=== PATIENT | male | born 1940 | race Hispanic/Latino ===

== ENCOUNTER 2018-01-08 09:18 | Outpatient (CLI) | payer MEDICARE, OTHER ==
--- NOTE | 2018-01-08 10:30 | RAD ---
THREE VIEWS LUMBAR SPINE: Technique: Neutral lateral, flexion and extension views. Date: 01-08-18 History: Lumbar radiculopathy. History of back surgery in 2011. Patient fell backwards onto a log fou r months ago and now has left hip and back pain. FINDINGS: Vertebral body heights are within normal limits. There is narrowing of the L4-5 intervertebral disc s pace and to a lesser extent L5-S1 intervertebral disc space. No fracture or subluxation is seen on th e provided lateral images. There are facet degenerative changes in the lower lumbar spine. Surgical c lips are seen in the anterior upper abdomen. Multiple clips also overlie the pelvis. Vascular calcifi cation in the abdominal aorta. IMPRESSION: 1, Degenerative changes in the lumbar spine, greatest at the L4-5 level. 2. No fracture or subluxation is seen on the provided lateral images. POS: [facility]
--- NOTE | 2018-01-08 11:22 | MRI ---
MRI LUMBAR SPINE WITHOUT IV CONTRAST: DATE: 01/08/18. HISTORY: Lumbar radiculopathy. History of back surgery in 2012. The patient fell 4 months ago and now has le ft hip and back pain. Lumbar radiculopathy. COMPARISON: None available. FINDINGS: There are a few tiny increased T2 weighted signal intensity foci in each kidney which are difficult t o characterize due to small size, but statistically likely represent cysts. The remainder of the ret roperitoneal structures demonstrate a normal MRI appearance. Conus medullaris is normal in appearance and terminates at the L1-2 level. There is generalized heterogeneity of the bone marrow with scattered end plate degenerative changes p resent. Schmorl's nodes are present at the inferior end plates of the T10 and T11 vertebral bodies. L1-2 level: There is a broad-based disk-osteophyte complex with mild facet degenerative changes. Th ere is mild narrowing of the central spinal canal. There is mild encroachment on the right neural fo ramen, but the left neural foramen is patent. L2-3 level: There is a mild broad-based disk-osteophyte complex with facet hypertrophic changes. Th is results in mild narrowing of the central spinal canal. There is minimal encroachment of the right neural foramen, but the left neural foramen is patent. L3-4 level: There is a mild broad-based disk-osteophyte complex greater laterally on the right. Thi s does result in mild right-sided neural foraminal narrowing. The left neural foramen is patent. Th ere is only minimal effacement of the ventral aspect of the thecal sac. L4-5 level: There is loss of intervertebral disk height. There is a broad-based disk-osteophyte com plex. Moderate facet hypertrophic changes and ligamentous thickening are present. There is mild to moderate narrowing of the central spinal canal. There is mild right and moderate left-sided neural f oraminal narrowing. L5-S1 level: There is minimal disk bulge without significant narrowing of the central spinal canal. There are facet degenerative changes present, greater on the right with mild right-sided neural fora darlene narrowing. The left neural foramen is patent. IMPRESSION: 1. Scattered degenerative changes within the lumbar spine without significant central canal or neura l foraminal narrowing. The greatest degree of neural foraminal narrowing is seen on the left at the L4-5 level with mild to moderate narrowing of the neural foramen. 2. MRI of the lumbar spine on 03/20/12 also demonstrated multilevel degenerative changes, and there h as been no significant progression in the degree of the degenerative changes when compared to the debbie or exam. POS: [facility]
== END 2018-01-08 09:19 | disposition home or self-care (01) ==
LOC: TBSIIMAG 09:18
PROVIDERS: ATTEND Nurse Practitioner Family
DX: M47.26 Other spondylosis with radiculopathy, lumbar region (principal); M99.83 Other biomechanical lesions of lumbar region
CPT/HCPCS: 72100; 72148

== ENCOUNTER 2020-02-12 14:07 | Outpatient (CLI) | payer MEDICARE, OTHER ==
--- NOTE | 2020-02-12 14:52 | RAD ---
RIGHT HIP 2 VIEWS: INDICATION: Right hip pain. COMPARISON: None. 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 There is moderate to severe right hip osteo arthrosis. No acute fracture is evident. IMPRESSION: No acute osseous abnormality. Moderate right hip osteoarthrosis. POS: [facility]
== END 2020-02-12 14:08 | disposition home or self-care (01) ==
LOC: RAD 14:07
PROVIDERS: ATTEND Nurse Practitioner Family
DX: M25.551 Pain in right hip (principal); M16.11 Unilateral primary osteoarthritis, right hip

== ENCOUNTER 2020-03-18 12:41 | Outpatient (CLI) | payer MEDICARE, OTHER ==
--- NOTE | 2020-03-18 13:46 | RAD ---
Exam: 3 views lumbar spine HISTORY: Lumbar radiculopathy. COMPARISON: 01/08/2018 FINDINGS: Lateral neutral, lateral flexion and lateral extension views lumbar spine demonstrate 5 lum bar type vertebra. Moderate degenerative change at L4-L5. No spondylolisthesis in the neutral position. No abnormal motion upon flexion or extension. Stable mild degenerative change at the L1-L2 level IMPRESSION: Stable degenerative changes. No significant spondylolisthesis or spondylolysis.
--- NOTE | 2020-03-18 14:16 | MRI ---
MRI LUMBAR SPINE NONCONTRAST: HISTORY: Bilateral hip pain times many years. COMPARISON: 01/08/2018. FINDINGS: Appropriate T1 marrow signal intensity of the lumbar vertebrae. Lumbar spine vertebral body height is maintained and there is no fracture. No significant STIR hyperintensity to suggest edematous injury or vertebral body edema. Appropriate signal intensity visualized of the solid organs and paraspinal muscles. Conus medullaris terminates at the mid L1 level. T12-L1:Adequate disc hydration. No significant central canal stenosis or significant neural foraminal narrowing. L1-L2:Disc desiccation with mild loss of disc space height. Broad-based disc bulge, ligament flavum t hickening and facet hypertrophy result in mild central canal stenosis. Moderate right and mild left neural foraminal narrowing. L2-L3:Disc desiccation with mild loss of disc space height. Broad-based disc bulge, ligament flavum t hickening and facet result in mild central canal stenosis. Mild bilateral neural foraminal narrowing. L3-L4:Disc desiccation without significant loss of disc space height. Broad-based disc bulge minimall y contacts the ventral thecal sac. There is mild ligament flavum thickening and facet hypertrophy. Mild central canal stenosis. Bilaterally, neural foramina are patent. L4-L5:Disc desiccation with moderate loss of disc space height. Broad-based disc bulge, ligament flav um thickening and facet hypertrophy result in mild stenosis of the thecal sac. There is encroachment upon the left subarticular zone with partial obscuration traversing left L5 nerve root. Mild right neural foraminal narrowing due to disc material. Severe left neural foraminal narrowing due to disc material. There is also obscuration the extraforaminal left L4 nerve root. L5-S1:Adequate disc hydration. No significant loss of disc space height. No posterior disc abnormalit y. No significant central canal stenosis. Small amount of fluid in the left facet joint. Moderate bilateral facet arthropathy. IMPRESSION: Multilevel degenerative changes of the lumbar spine as detailed above. Transcribed Date/Time: 03/18/2020 2:40 PM
== END 2020-03-18 12:42 | disposition home or self-care (01) ==
LOC: MRI 12:41
PROVIDERS: ATTEND Nurse Practitioner Family
DX: M47.26 Other spondylosis with radiculopathy, lumbar region (principal)
CPT/HCPCS: 72100; 72148

== ENCOUNTER 2023-11-14 19:16 | Emergency (ER) | payer MEDICARE, OTHER ==
[2023-11-14] MEDS ORDERED: Bupivacaine 0.5% 10 ML VIAL ONE (20:07)
[2023-11-14] MEDS ORDERED: Boostrix 0.5 ML (Tdap) VIAL (>/=7 yrs of age) ONE (21:59)
== END 2023-11-14 23:23 | disposition home or self-care (01) ==
LOC: ERS 19:16
DX: S61.213A Laceration without foreign body of left middle finger without damage to nail, initial encounter (principal); F03.90 Unspecified dementia, unspecified severity, without behavioral disturbance, psychotic disturbance, mood disturbance, and anxiety; W23.0XXA Caught, crushed, jammed, or pinched between moving objects, initial encounter
CPT/HCPCS: 12002; 70450; 90471; 90715; J3490

== ENCOUNTER 2024-01-25 06:04 | Day surgery (SDC) | payer MEDICARE, OTHER ==
[2024-01-24 12:37] VITALS: BMI 23.3
[~2024-01-25 06:04] MED LIST: EPINEPHrine 0.3 MG in Ophthalmic Irrigation Solution 500 ML IRR SCH
[2024-01-25] MEDS ORDERED: PHENYLephrine 2.5% Ophth Soln 15 ml Bottle ONE (06:16)
[2024-01-25] MEDS ORDERED: PROPOFOL 20 ML ONE (06:44)
[2024-01-25] MEDS ORDERED: fentaNYL 50 mcg/mL 1 mL Vial ONE (06:45)
[2024-01-25] MEDS ORDERED: Lidocaine 1% PF 5 ML VIAL ONE ×2 (07:13→07:19)
[2024-01-25] MEDS ORDERED: Ondansetron PF 4 MG/2 ML Vial ONE (07:13)
[2024-01-25] MEDS ORDERED: Dexamethasone 4 mg/ml Vial ONE (07:13)
[2024-01-25] MEDS ORDERED: ePHEDrine Sulfate 50 MG/10 ML VIAL ONE (07:16)
[2024-01-25] MEDS ORDERED: Lidocaine 4% PF 5 ML AMP ONE (07:19)
[2024-01-25] MEDS ORDERED: Triamcinolone 40 MG/ML VIAL ONE (07:19)
[2024-01-25] MEDS ORDERED: Maxitrol 0.1% Opth Oint 3.5 GM TUBE ONE (07:19)
[2024-01-25] MEDS ORDERED: Bupivacaine 0.75% 10 ML VIAL ONE (07:19)
[2024-01-25] MEDS ORDERED: CEFAZOLIN 1 GM VIAL ONE (07:19)
== END 2024-01-25 10:46 | disposition home or self-care (01) ==
LOC: SDC 06:04
PROVIDERS: ATTEND Ophthalmology Retina Specialist
PROC: 08T53ZZ Resection of Left Vitreous, Percutaneous Approach (ICD-10-PCS; principal; 2024-01-25)
DX: T85.22XA Displacement of intraocular lens, initial encounter (principal); H43.391 Other vitreous opacities, right eye; G47.33 Obstructive sleep apnea (adult) (pediatric); K21.9 Gastro-esophageal reflux disease without esophagitis; F03.90 Unspecified dementia, unspecified severity, without behavioral disturbance, psychotic disturbance, mood disturbance, and anxiety; G40.909 Epilepsy, unspecified, not intractable, without status epilepticus; R73.03 Prediabetes; F32.A Depression, unspecified; N40.0 Benign prostatic hyperplasia without lower urinary tract symptoms; R32 Unspecified urinary incontinence; Z90.49 Acquired absence of other specified parts of digestive tract; Z98.890 Other specified postprocedural states
CPT/HCPCS: 66986; 67036; J3010; V2632; J0171; J0690; J1100; J2405; J2704; J3301; J3490